=== PATIENT | female | born 1955 | race Asian ===

== ENCOUNTER 2020-07-31 07:33 | Day surgery (SDC) | payer OTHER ==
[~2020-07-31] VITALS: Ht 152.4 cm; Wt 52.6 kg
[2020-07-31] MEDS ORDERED: CLINDAMYCIN PHOS 600 MG/ D5W 50 ML PREMIX IV ONE (08:00)
[2020-07-31] MEDS ORDERED: DEXTROSE 50% JECT 50 ML DISP.SYRIN IVP ONE (09:15)
[2020-07-31] MEDS ORDERED: HYDROmorphone 1 MG/ML INJ. CARTRIDGE IVP PRN ×2 (10:00)
[2020-07-31] MEDS ORDERED: ONDANSETRON HCL 4 MG/2 ML VIAL IVP PRN (10:00)
[2020-07-31] MEDS ORDERED: POLYMYXIN 500,000/BACIT.10,000 UNITS in NS IRR 1 L IR ONE (11:23)
[2020-07-31] MEDS ORDERED: ACETAMINOPHEN I.V. 1000 MG 100 ML IV ONE (11:24)
[2020-07-31 13:01] VITALS: BP_SYST 150
== END 2020-07-31 14:20 | disposition home or self-care (01) ==
LOC: SMU 07:33 → SDS 07:33 → EDSTATUS 09:00 → SDS 13:20
PROVIDERS: ATTEND Otolaryngology
DX: J32.3 Chronic sphenoidal sinusitis (principal); J34.89 Other specified disorders of nose and nasal sinuses; R51.0 Headache with orthostatic component, not elsewhere classified; H92.02 Otalgia, left ear; I10 Essential (primary) hypertension; E11.40 Type 2 diabetes mellitus with diabetic neuropathy, unspecified; R22.1 Localized swelling, mass and lump, neck; Z79.899 Other long term (current) drug therapy; Z20.822 Contact with and (suspected) exposure to COVID-19
CPT/HCPCS: 31288; 82962; J0131; J3490; U0003; 88305; 88311